=== PATIENT | female | born 1960 | race Caucasian/White ===

== ENCOUNTER → 2016-07-02 | Outpatient (CLI) | payer OTHER | LOC: BRMIMAGING 08:20 | PROVIDERS: ATTEND Physician Assistant Medical | DX: Z12.31 Encounter for screening mammogram for malignant neoplasm of breast (principal) | CPT/HCPCS: G0202 ==

== ENCOUNTER → 2016-07-05 | Outpatient (CLI) | payer OTHER | LOC: BRMIMAGING 09:24 | PROVIDERS: ATTEND Physician Assistant Medical | DX: Z12.39 Encounter for other screening for malignant neoplasm of breast (principal); R92.0 Mammographic microcalcification found on diagnostic imaging of breast; N60.02 Solitary cyst of left breast | CPT/HCPCS: 76641-PO; G0204 ==